=== PATIENT | female | born 1980 | race Two or more races ===

== ENCOUNTER 2022-09-12 10:52 | Emergency (ER) | payer OTHER ==
[~2022-09-12] VITALS: Ht 160 cm; Wt 53.1 kg
[2022-09-12] MEDS ORDERED: TOPROL XL25 M1 PO (10:59)
[2022-09-12] MEDS ORDERED: METHOTREXA25 MG/1 M5 IJ (10:59)
== END 2022-09-12 13:35 | disposition home or self-care (01) ==
LOC: ER 10:52
DX: M54.2 Cervicalgia (principal)